=== PATIENT | female | born 1955 | race Caucasian/White ===

== ENCOUNTER 2020-07-10 04:08 | Outpatient (REF) | payer MEDICAID, SELFPAY | END 2020-07-10 04:09 | disposition home or self-care (01) | LOC: HO.LHD 04:08 | PROVIDERS: Visit Provider Nurse Practitioner Adult Health | DX: Z13.89 Encounter for screening for other disorder (principal) ==

== ENCOUNTER 2020-07-14 | Outpatient (REF) | payer MEDICARE, MEDICAID, SELFPAY ==
[2020-07-14 11:01] LABS: Hematocrit 36.3 % (37-47); Hemoglobin 11.3 g/dl (12.0-16.0); Mean Corpuscular HGB Conc 31.1 g/dl (31.0-35.0); Mean Corpuscular Hemoglobin 28.8 pg (27.0-33.0); Mean Corpuscular Volume 92.6 fL (80-98); Mean Platelet Volume 11.4 fL (9.4-12.3); Platelet Count 187 X10*3/uL (160-400); Red Blood Count 3.92 X10*6/uL (4.20-5.50); Red Cell Distribution Width 15.4 % (11.0-16.0); White Blood Count 5.5 X10*3/uL (4.8-10.8)
[2020-07-14 11:16] LABS: Estimated Average Glucose 77 mg/dL; Hemoglobin A1C 69.5368 umol/L; Hemoglobin A1c % 4.3 %
[2020-07-14 11:17] LABS: Prothrombin Time 77.5 SEC (10.8-13.0)
[2020-07-14 11:26] LABS: INTERNATIONAL NORM RATIO 6.4 (0.9-1.1)
[2020-07-14 11:44] LABS: Alanine Aminotransferase 26 U/L (0-31); Albumin Level 3.3 g/dL (3.5-5.0); Alkaline Phosphatase 127 U/L (39-117); Aspartate Amino Transferase 20 U/L (5-31); Bilirubin Total 1.2 mg/dL (0.0-1.0); Blood Urea Nitrogen 22 mg/dL (9-16); Calcium 7.8 mg/dL (8.4-10.2); Cholesterol 93 mg/dL; Estimated Glomerular Filt Rate > 60; Glucose Random 82 mg/dL (60-115); HDL Cholesterol 24 mg/dL; LDL Cholesterol Calculated 52 mg/dl; Phosphorus 2.7 mg/dL (2.7-4.5); Total Protein 6.1 g/dL (6.5-8.0); Triglycerides 89 mg/dL
[2020-07-14 11:45] LABS: Digoxin 0.5 ng/mL (0.8-2.0)
[2020-07-14 11:53] LABS: TSH reflex Free T4 1.62 mIU/mL (0.32-4.0)
[2020-07-14 12:04] LABS: Anion Gap 13 (12-20); Carbon Dioxide 25 mmol/L (22-29); Chloride 111 mmol/L (96-108); Potassium 3.9 mmol/l (3.3-5.1); Sodium 145 mmol/L (135-145)
[2020-07-14 12:08] LABS: Magnesium 0.7 mg/dL (1.6-2.6); Vitamin B12 417 pg/mL (200-900)
== END 2020-07-14 00:01 | disposition home or self-care (01) ==
LOC: HO.LHD
PROVIDERS: Visit Provider Nurse Practitioner Adult Health
DX: K90.89 Other intestinal malabsorption (principal); E43 Unspecified severe protein-calorie malnutrition; I48.91 Unspecified atrial fibrillation; F51.01 Primary insomnia; Z79.01 Long term (current) use of anticoagulants; R41.89 Other symptoms and signs involving cognitive functions and awareness
CPT/HCPCS: 36415; 80053; 80061; 80162; 82306; 82607; 83036; 83735; 84100; 84443; 85027; 85610

== ENCOUNTER 2020-07-18 06:49 | Outpatient (REF) | payer MEDICARE, MEDICAID, SELFPAY ==
[2020-07-18 11:24] LABS: INTERNATIONAL NORM RATIO 3.2 (0.9-1.1); Prothrombin Time 37.9 SEC (10.8-13.0)
== END 2020-07-18 06:50 | disposition home or self-care (01) ==
LOC: HO.LHD 06:49
PROVIDERS: Visit Provider Nurse Practitioner Adult Health
DX: I48.91 Unspecified atrial fibrillation (principal)
CPT/HCPCS: 36415; 85610

== ENCOUNTER 2020-07-24 04:03 | Outpatient (REF) | payer MEDICAID, SELFPAY ==
[2020-07-24 11:08] LABS: INTERNATIONAL NORM RATIO 1.6 (0.9-1.1); Prothrombin Time 19.4 SEC (10.8-13.0)
== END 2020-07-24 04:04 | disposition home or self-care (01) ==
LOC: HO.LHD 04:03
PROVIDERS: Visit Provider Nurse Practitioner Adult Health
DX: I48.91 Unspecified atrial fibrillation (principal)
CPT/HCPCS: 36415; 85610

== ENCOUNTER 2020-07-31 06:53 | Outpatient (REF) | payer MEDICAID, SELFPAY ==
[2020-07-31 10:58] LABS: INTERNATIONAL NORM RATIO 1.4 (0.9-1.1); Prothrombin Time 16.6 SEC (10.8-13.0)
== END 2020-07-31 06:54 | disposition home or self-care (01) ==
LOC: HO.LHD 06:53
PROVIDERS: Visit Provider Nurse Practitioner Adult Health
DX: I48.91 Unspecified atrial fibrillation (principal)
CPT/HCPCS: 36415; 85610

== ENCOUNTER 2020-08-08 07:13 | Outpatient (REF) | payer MEDICARE, MEDICAID, SELFPAY ==
[2020-08-08 10:54] LABS: Prothrombin Time 23.7 SEC (10.8-13.0)
== END 2020-08-08 07:14 | disposition home or self-care (01) ==
LOC: HO.LHD 07:13
PROVIDERS: Visit Provider Nurse Practitioner Adult Health
DX: I48.91 Unspecified atrial fibrillation (principal)
CPT/HCPCS: 36415; 85610

== ENCOUNTER 2020-08-14 | Outpatient (REF) | payer MEDICARE, MEDICAID, SELFPAY ==
[2020-08-14 10:52] LABS: INTERNATIONAL NORM RATIO 2.1 (0.9-1.1); Prothrombin Time 25.6 SEC (10.8-13.0)
== END 2020-08-14 00:01 | disposition home or self-care (01) ==
LOC: HO.LHD
PROVIDERS: Visit Provider Nurse Practitioner Adult Health
DX: I48.91 Unspecified atrial fibrillation (principal)
CPT/HCPCS: 36415; 85610

== ENCOUNTER 2020-08-28 | Outpatient (REF) | payer MEDICARE, MEDICAID, SELFPAY ==
[2020-08-28 10:50] LABS: INTERNATIONAL NORM RATIO 2.8 (0.9-1.1); Prothrombin Time 33.8 SEC (10.8-13.0)
== END 2020-08-28 00:01 | disposition home or self-care (01) ==
LOC: HO.LHD
PROVIDERS: Visit Provider Nurse Practitioner Adult Health
DX: I48.91 Unspecified atrial fibrillation (principal); Z79.01 Long term (current) use of anticoagulants
CPT/HCPCS: 36415; 85610

== ENCOUNTER 2020-09-18 | Outpatient (REF) | payer MEDICARE, MEDICAID, SELFPAY ==
[2020-09-18 10:29] LABS: INTERNATIONAL NORM RATIO 4.1 (0.9-1.1); Prothrombin Time 49.2 SEC (10.8-13.0)
== END 2020-09-18 00:01 ==
LOC: HO.LHD
PROVIDERS: Visit Provider Nurse Practitioner Adult Health
DX: I48.91 Unspecified atrial fibrillation (principal); Z79.01 Long term (current) use of anticoagulants
CPT/HCPCS: 36415; 85610

== ENCOUNTER 2020-09-29 08:04 | Outpatient (REF) | payer MEDICARE, MEDICAID, SELFPAY ==
[2020-09-29 11:50] LABS: INTERNATIONAL NORM RATIO 3.6 (0.9-1.1); Prothrombin Time 43.7 SEC (10.8-13.0)
== END 2020-09-29 08:05 | disposition home or self-care (01) ==
LOC: HO.LHD 08:04
PROVIDERS: Visit Provider Nurse Practitioner Adult Health
DX: I48.91 Unspecified atrial fibrillation (principal)
CPT/HCPCS: 36415; 85610

== ENCOUNTER 2020-10-09 05:07 | Outpatient (REF) | payer MEDICARE, MEDICAID, SELFPAY ==
[2020-10-09 11:32] LABS: INTERNATIONAL NORM RATIO 2.3 (0.9-1.1); Prothrombin Time 27.6 SEC (10.8-13.0)
== END 2020-10-09 05:08 | disposition home or self-care (01) ==
LOC: HO.LHD 05:07
PROVIDERS: Visit Provider Nurse Practitioner Adult Health
DX: I48.91 Unspecified atrial fibrillation (principal)
CPT/HCPCS: 36415; 85610

== ENCOUNTER 2020-10-23 | Outpatient (REF) | payer MEDICARE, MEDICAID, SELFPAY ==
[2020-10-23 10:01] LABS: INTERNATIONAL NORM RATIO 2.4 (0.9-1.1); Prothrombin Time 28.3 SEC (10.8-13.0)
== END 2020-10-23 00:01 | disposition home or self-care (01) ==
LOC: HO.LHD
PROVIDERS: Visit Provider Nurse Practitioner Adult Health
DX: I48.91 Unspecified atrial fibrillation (principal)
CPT/HCPCS: 36415; 85610

== ENCOUNTER 2020-11-13 05:14 | Outpatient (REF) | payer MEDICARE, MEDICAID, SELFPAY ==
[2020-11-13 11:18] LABS: INTERNATIONAL NORM RATIO 2.1 (0.9-1.1); Prothrombin Time 25.7 SEC (10.8-13.0)
== END 2020-11-13 05:15 | disposition home or self-care (01) ==
LOC: HO.LHD 05:14
PROVIDERS: Visit Provider Nurse Practitioner Adult Health
DX: I48.91 Unspecified atrial fibrillation (principal)
CPT/HCPCS: 36415; 85610

== ENCOUNTER 2020-12-04 00:16 | Outpatient (REF) | payer MEDICARE, MEDICAID, SELFPAY ==
[2020-12-04 11:01] LABS: INTERNATIONAL NORM RATIO 2.1 (0.9-1.1); Prothrombin Time 25.7 SEC (10.8-13.0)
== END 2020-12-04 00:17 | disposition home or self-care (01) ==
LOC: HO.LHD 00:16
PROVIDERS: Visit Provider Nurse Practitioner Adult Health
DX: I48.91 Unspecified atrial fibrillation (principal)
CPT/HCPCS: 36415; 85610

== ENCOUNTER 2021-01-01 01:10 | Outpatient (REF) | payer MEDICARE, MEDICAID, SELFPAY ==
[2021-01-01 11:14] LABS: INTERNATIONAL NORM RATIO 1.8 (0.9-1.1); Prothrombin Time 21.6 SEC (10.8-13.0)
== END 2021-01-01 01:11 | disposition home or self-care (01) ==
LOC: HO.LHD 01:10
PROVIDERS: Visit Provider Nurse Practitioner Adult Health
DX: I48.91 Unspecified atrial fibrillation (principal)
CPT/HCPCS: 36415; 85610

== ENCOUNTER 2021-01-29 00:59 | Outpatient (REF) | payer MEDICARE, MEDICAID, SELFPAY ==
[2021-01-29 11:23] LABS: INTERNATIONAL NORM RATIO 1.7 (0.9-1.1); Prothrombin Time 20.6 SEC (10.8-13.0)
== END 2021-01-29 01:00 | disposition home or self-care (01) ==
LOC: HO.LHD 00:59
PROVIDERS: Visit Provider Nurse Practitioner Adult Health
DX: I48.91 Unspecified atrial fibrillation (principal)
CPT/HCPCS: 36415; 85610

== ENCOUNTER 2021-02-12 00:57 | Outpatient (REF) | payer MEDICARE, MEDICAID, SELFPAY ==
[2021-02-12 12:31] LABS: INTERNATIONAL NORM RATIO 2.3 (0.9-1.1); Prothrombin Time 27.3 SEC (10.8-13.0)
== END 2021-02-12 00:58 | disposition home or self-care (01) ==
LOC: HO.LHD 00:57
PROVIDERS: Visit Provider Nurse Practitioner Adult Health
DX: I48.91 Unspecified atrial fibrillation (principal)
CPT/HCPCS: 36415; 85610

== ENCOUNTER 2021-03-05 06:33 | Outpatient (REF) | payer MEDICARE, MEDICAID, SELFPAY ==
[2021-03-05 11:09] LABS: INTERNATIONAL NORM RATIO 1.8 (0.9-1.1); Prothrombin Time 21.8 SEC (10.8-13.0)
== END 2021-03-05 06:34 | disposition home or self-care (01) ==
LOC: HO.LHD 06:33
PROVIDERS: Visit Provider Nurse Practitioner Adult Health
DX: I48.91 Unspecified atrial fibrillation (principal)
CPT/HCPCS: 36415; 85610

== ENCOUNTER 2021-03-25 01:04 | Outpatient (REF) | payer MEDICARE, MEDICAID, SELFPAY ==
[2021-03-25 10:41] LABS: INTERNATIONAL NORM RATIO 3.4 (0.9-1.1); Prothrombin Time 41.3 SEC (10.8-13.0)
== END 2021-03-25 01:05 | disposition home or self-care (01) ==
LOC: HO.LHD 01:04
PROVIDERS: Visit Provider Nurse Practitioner Adult Health
DX: I48.91 Unspecified atrial fibrillation (principal)
CPT/HCPCS: 36415; 85610

== ENCOUNTER 2021-04-02 00:59 | Outpatient (REF) | payer MEDICARE, MEDICAID, SELFPAY ==
[2021-04-02 12:03] LABS: Hematocrit 40.3 % (37-47); Hemoglobin 12.6 g/dl (12.0-16.0); Mean Corpuscular HGB Conc 31.3 g/dl (31.0-35.0); Mean Corpuscular Hemoglobin 29.8 pg (27.0-33.0); Mean Corpuscular Volume 95.3 fL (80-98); Mean Platelet Volume 11.5 fL (9.4-12.3); Platelet Count 137 X10*3/uL (160-400); Red Blood Count 4.23 X10*6/uL (4.20-5.50); Red Cell Distribution Width 14.2 % (11.0-16.0); White Blood Count 4.2 X10*3/uL (4.8-10.8)
[2021-04-02 12:04] LABS: INTERNATIONAL NORM RATIO 2.7 (0.9-1.1); Prothrombin Time 31.2 SEC (9.9-13.0)
[2021-04-02 13:26] LABS: Digoxin 0.4 ng/mL (0.8-2.0)
[2021-04-02 13:40] LABS: Anion Gap 11 (12-20); Blood Urea Nitrogen 29 mg/dL (9-16); Calcium 9.6 mg/dL (8.4-10.2); Carbon Dioxide 24 mmol/L (22-29); Chloride 114 mmol/L (96-108); Estimated Glomerular Filt Rate > 60; Glucose Random 82 mg/dL (60-115); Iron 47 mcg/dL (30-160); Magnesium 1.3 mg/dL (1.6-2.6); Percent Iron Saturation 15 % (15-50); Potassium 4.1 mmol/L (3.3-5.1); Sodium 145 mmol/L (135-145); Total Iron Binding Capacity 304 mcg/dL (228-428); Unsaturated Iron Binding 257 ug/dL
[2021-04-02 13:51] LABS: Vitamin D 25-OH Total 12.3 ng/mL (>30)
[2021-04-03 08:21] LABS: ~HepC Num1 0.19 S/CO (0.00-0.79); ~Hepatitis C Antibody Nonreactive (Nonreactive)
[2021-04-06 14:27] LABS: Zinc 53 mcg/dL (60-130)
== END 2021-04-02 01:00 | disposition home or self-care (01) ==
LOC: HO.LHD 00:59
PROVIDERS: Visit Provider Nurse Practitioner Adult Health
DX: I48.91 Unspecified atrial fibrillation (principal)
CPT/HCPCS: 36415; 80048; 80162; 82306; 83540; 83735; 84630; 85027; 85610; 86803

== ENCOUNTER 2021-04-09 | Outpatient (REF) | payer MEDICARE, MEDICAID, SELFPAY ==
[2021-04-09 11:06] LABS: Prothrombin Time 22.9 SEC (9.9-13.0)
== END 2021-04-09 00:01 | disposition home or self-care (01) ==
LOC: HO.LHD
PROVIDERS: Visit Provider Nurse Practitioner Adult Health
DX: I48.91 Unspecified atrial fibrillation (principal); Z79.01 Long term (current) use of anticoagulants
CPT/HCPCS: 36415; 85610

== ENCOUNTER 2021-04-23 07:11 | Outpatient (REF) | payer MEDICARE, MEDICAID, SELFPAY ==
[2021-04-23 10:45] LABS: INTERNATIONAL NORM RATIO 1.6 (0.9-1.1); Prothrombin Time 18.4 SEC (9.9-13.0)
== END 2021-04-23 07:12 | disposition home or self-care (01) ==
LOC: HO.LHD 07:11
PROVIDERS: Visit Provider Nurse Practitioner Adult Health
DX: I48.91 Unspecified atrial fibrillation (principal)
CPT/HCPCS: 36415; 85610

== ENCOUNTER 2021-04-30 07:12 | Outpatient (REF) | payer MEDICARE, MEDICAID, SELFPAY ==
[2021-04-30 11:32] LABS: INTERNATIONAL NORM RATIO 1.8 (0.9-1.1); Prothrombin Time 20.5 SEC (9.9-13.0)
== END 2021-04-30 07:13 | disposition home or self-care (01) ==
LOC: HO.LHD 07:12
PROVIDERS: Visit Provider Nurse Practitioner Adult Health
DX: I48.91 Unspecified atrial fibrillation (principal)
CPT/HCPCS: 36415; 85610

== ENCOUNTER 2021-05-14 06:44 | Outpatient (REF) | payer MEDICARE, MEDICAID, SELFPAY ==
[2021-05-14 10:45] LABS: INTERNATIONAL NORM RATIO 2.6 (0.9-1.1); Prothrombin Time 30.7 SEC (9.9-13.0)
== END 2021-05-14 06:45 | disposition home or self-care (01) ==
LOC: HO.LHD 06:44
PROVIDERS: Visit Provider Nurse Practitioner Adult Health
DX: I48.91 Unspecified atrial fibrillation (principal)
CPT/HCPCS: 36415; 85610

== ENCOUNTER 2021-06-04 05:00 | Outpatient (REF) | payer MEDICARE, MEDICAID, SELFPAY ==
[2021-06-04 10:34] LABS: INTERNATIONAL NORM RATIO 1.6 (0.9-1.1); Prothrombin Time 18.8 SEC (9.9-13.0)
[2021-06-04 11:03] LABS: Digoxin 0.4 ng/mL (0.8-2.0)
== END 2021-06-04 05:01 ==
LOC: HO.LHD 05:00
PROVIDERS: Visit Provider Nurse Practitioner Adult Health
DX: I48.91 Unspecified atrial fibrillation (principal); Z79.899 Other long term (current) drug therapy
CPT/HCPCS: 36415; 80162; 85610

== ENCOUNTER 2021-06-11 07:25 | Outpatient (REF) | payer MEDICARE, MEDICAID, SELFPAY ==
[2021-06-11 10:01] LABS: INTERNATIONAL NORM RATIO 2.2 (0.9-1.1)
== END 2021-06-11 07:26 | disposition home or self-care (01) ==
LOC: HO.LHD 07:25
PROVIDERS: Visit Provider Nurse Practitioner Adult Health
DX: I48.91 Unspecified atrial fibrillation (principal)
CPT/HCPCS: 36415; 85610

== ENCOUNTER 2021-06-25 10:49 | Outpatient (REF) | payer MEDICARE, MEDICAID, SELFPAY ==
[2021-06-25 11:25] LABS: INTERNATIONAL NORM RATIO 1.9 (0.9-1.1); Prothrombin Time 21.9 SEC (9.9-13.0)
== END 2021-06-25 10:50 | disposition home or self-care (01) ==
LOC: HO.LHD 10:49
PROVIDERS: Visit Provider Nurse Practitioner Adult Health
DX: I48.91 Unspecified atrial fibrillation (principal)
CPT/HCPCS: 36415; 85610

== ENCOUNTER 2021-07-09 12:37 | Outpatient (REF) | payer MEDICARE, MEDICAID, SELFPAY ==
[2021-07-09 10:28] LABS: Alanine Aminotransferase 30 U/L (0-31); Albumin Level 3.4 g/dL (3.5-5.0); Alkaline Phosphatase 102 U/L (39-117); Anion Gap 10 (12-20); Aspartate Amino Transferase 20 U/L (5-31); Bilirubin Total 1.5 mg/dL (0.0-1.0); Blood Urea Nitrogen 36 mg/dL (9-16); Calcium 9.6 mg/dL (8.4-10.2); Carbon Dioxide 29 mmol/L (22-29); Chloride 113 mmol/L (96-108); Estimated Glomerular Filt Rate > 60; Glucose Random 91 mg/dL (60-115); Potassium 4.7 mmol/L (3.3-5.1); Sodium 147 mmol/L (135-145); Total Protein 5.8 g/dL (6.5-8.0)
[2021-07-09 10:34] LABS: INTERNATIONAL NORM RATIO 2.4 (0.9-1.1); Prothrombin Time 27.9 SEC (9.9-13.0)
[2021-07-09 11:20] LABS: Digoxin 0.5 ng/mL (0.8-2.0)
== END 2021-07-09 12:38 | disposition home or self-care (01) ==
LOC: HO.LHD 12:37
PROVIDERS: Visit Provider Nurse Practitioner Adult Health
DX: I48.91 Unspecified atrial fibrillation (principal)
CPT/HCPCS: 36415; 80053; 80162; 85610

== ENCOUNTER 2021-07-24 07:39 | Outpatient (REF) | payer MEDICARE, MEDICAID, SELFPAY ==
[2021-07-23 11:17] LABS: INTERNATIONAL NORM RATIO 2.8 (0.9-1.1); Prothrombin Time 32.4 SEC (9.9-13.0)
== END 2021-07-24 07:40 | disposition home or self-care (01) ==
LOC: HO.LHD 07:39
PROVIDERS: Visit Provider Nurse Practitioner Adult Health
DX: I48.91 Unspecified atrial fibrillation (principal); Z79.01 Long term (current) use of anticoagulants
CPT/HCPCS: 36415; 85610

== ENCOUNTER 2021-08-13 13:21 | Outpatient (REF) | payer MEDICARE, MEDICAID, SELFPAY ==
[2021-08-13 11:04] LABS: INTERNATIONAL NORM RATIO 3.7 (0.9-1.1); Prothrombin Time 43.5 SEC (9.9-13.0)
== END 2021-08-13 13:22 | disposition home or self-care (01) ==
LOC: HO.LHD 13:21
PROVIDERS: Visit Provider Nurse Practitioner Adult Health
DX: I48.91 Unspecified atrial fibrillation (principal); Z79.01 Long term (current) use of anticoagulants
CPT/HCPCS: 36415; 85610

== ENCOUNTER 2021-08-27 12:04 | Outpatient (REF) | payer MEDICARE, MEDICAID, SELFPAY ==
[2021-08-27 10:44] LABS: Prothrombin Time 35.4 SEC (9.9-13.0)
== END 2021-08-27 12:05 | disposition home or self-care (01) ==
LOC: HO.LHD 12:04
PROVIDERS: Visit Provider Nurse Practitioner Adult Health
DX: I48.91 Unspecified atrial fibrillation (principal); Z79.01 Long term (current) use of anticoagulants
CPT/HCPCS: 36415; 85610

== ENCOUNTER 2021-09-17 08:28 | Outpatient (REF) | payer MEDICARE, MEDICAID, SELFPAY ==
[2021-09-17 12:03] LABS: INTERNATIONAL NORM RATIO 4.1 (0.9-1.1); Prothrombin Time 48.4 SEC (9.9-13.0)
== END 2021-09-17 08:29 | disposition home or self-care (01) ==
LOC: HO.LHD 08:28
PROVIDERS: Visit Provider Nurse Practitioner Adult Health
DX: I48.91 Unspecified atrial fibrillation (principal); Z79.01 Long term (current) use of anticoagulants
CPT/HCPCS: 36415; 85610

== ENCOUNTER 2021-09-24 12:48 | Outpatient (REF) | payer MEDICARE, MEDICAID, SELFPAY ==
[2021-09-24 11:47] LABS: INTERNATIONAL NORM RATIO 2.9 (0.9-1.1); Prothrombin Time 33.4 SEC (9.9-13.0)
== END 2021-09-24 12:49 | disposition home or self-care (01) ==
LOC: HO.LHD 12:48
PROVIDERS: Visit Provider Nurse Practitioner Adult Health
DX: I48.91 Unspecified atrial fibrillation (principal); Z79.01 Long term (current) use of anticoagulants
CPT/HCPCS: 36415; 85610

== ENCOUNTER 2021-10-08 11:14 | Outpatient (REF) | payer MEDICARE, MEDICAID, SELFPAY ==
[2021-10-08 11:56] LABS: INTERNATIONAL NORM RATIO 2.4 (0.9-1.1); Prothrombin Time 27.7 SEC (9.9-13.0)
[2021-10-08 12:33] LABS: Digoxin 0.9 ng/mL (0.8-2.0)
== END 2021-10-08 11:15 | disposition home or self-care (01) ==
LOC: HO.LHD 11:14
PROVIDERS: Visit Provider Nurse Practitioner Adult Health
DX: I48.91 Unspecified atrial fibrillation (principal); Z79.899 Other long term (current) drug therapy
CPT/HCPCS: 36415; 80162; 85610

== ENCOUNTER 2021-11-05 07:24 | Outpatient (REF) | payer MEDICARE, MEDICAID, SELFPAY ==
[2021-11-05 14:29] LABS: INTERNATIONAL NORM RATIO 1.8 (0.9-1.1)
== END 2021-11-05 07:25 | disposition home or self-care (01) ==
LOC: HO.LHD 07:24
PROVIDERS: Visit Provider Nurse Practitioner Adult Health
DX: I48.91 Unspecified atrial fibrillation (principal); Z79.01 Long term (current) use of anticoagulants
CPT/HCPCS: 36415; 85610

== ENCOUNTER 2021-11-19 10:35 | Outpatient (REF) | payer MEDICARE, MEDICAID, SELFPAY ==
[2021-11-19 10:25] LABS: MANUAL DIFF FLAG NO
[2021-11-19 10:32] LABS: Basophils Percent Auto 0.7 % (0-2); Eosinophils Absolute Auto 0.2 X10*3/uL (0.0-0.4); Eosinophils Percent Auto 4.2 % (0-4); Hematocrit 38.8 % (37.0-47.0); Imm Gran Abs Auto 0.03 X10*3/uL (0.00-0.03); Imm Gran Pct Auto 0.7 % (0.0-0.4); Lymphocytes Absolute Auto 0.9 X10*3/uL (1.2-4.9); Lymphocytes Percent Auto 19.1 % (20-40); Mean Corpuscular HGB Conc 30.9 g/dl (31.0-35.0); Mean Corpuscular Hemoglobin 30.8 pg (27.0-33.0); Mean Corpuscular Volume 99.5 fL (80.0-98.0); Mean Platelet Volume 11.6 fL (9.4-12.3); Monocytes Absolute Auto 0.4 X10*3/uL (0.1-1.2); Neutrophils Percent Auto 66.3 % (45-73); Platelet Count 130 X10*3/uL (160-400); Red Cell Distribution Width 14.9 % (11.0-16.0); White Blood Count 4.6 X10*3/uL (4.8-10.8)
[2021-11-19 10:37] LABS: INTERNATIONAL NORM RATIO 2.1 (0.9-1.1); Prothrombin Time 24.6 SEC (9.9-13.0)
[2021-11-19 10:54] LABS: Anion Gap 9 (12-20); Blood Urea Nitrogen 26 mg/dL (9-16); Calcium 9.6 mg/dL (8.4-10.2); Carbon Dioxide 27 mmol/L (22-29); Chloride 113 mmol/L (96-108); Cholesterol 127 mg/dL; Estimated Glomerular Filt Rate > 60; Glucose Random 93 mg/dL (60-115); HDL Cholesterol 25 mg/dL; LDL Cholesterol Calculated 78 mg/dl; Potassium 4.7 mmol/L (3.3-5.1); Sodium 144 mmol/L (135-145); Triglycerides 123 mg/dL
== END 2021-11-19 10:36 | disposition home or self-care (01) ==
LOC: HO.LHD 10:35
PROVIDERS: Visit Provider Nurse Practitioner Adult Health
DX: E43 Unspecified severe protein-calorie malnutrition (principal); I48.91 Unspecified atrial fibrillation; Z79.01 Long term (current) use of anticoagulants
CPT/HCPCS: 36415; 80048; 80061; 85025; 85610

== ENCOUNTER 2021-12-03 06:06 | Outpatient (REF) | payer MEDICARE, MEDICAID, SELFPAY ==
[2021-12-03 12:37] LABS: INTERNATIONAL NORM RATIO 2.5 (0.9-1.1); Prothrombin Time 29.4 SEC (9.9-13.0)
== END 2021-12-03 06:07 | disposition home or self-care (01) ==
LOC: HO.LHD 06:06
PROVIDERS: Visit Provider Nurse Practitioner Adult Health
DX: I48.91 Unspecified atrial fibrillation (principal); Z79.01 Long term (current) use of anticoagulants
CPT/HCPCS: 36415; 85610

== ENCOUNTER 2021-12-17 11:01 | Outpatient (REF) | payer MEDICARE, MEDICAID, SELFPAY ==
[2021-12-17 11:34] LABS: INTERNATIONAL NORM RATIO 2.7 (0.9-1.1); Prothrombin Time 30.9 SEC (9.9-13.0)
== END 2021-12-17 11:02 | disposition home or self-care (01) ==
LOC: HO.LHD 11:01
PROVIDERS: Visit Provider Nurse Practitioner Adult Health
DX: I48.91 Unspecified atrial fibrillation (principal); Z79.01 Long term (current) use of anticoagulants
CPT/HCPCS: 36415; 85610

== ENCOUNTER 2022-01-12 05:43 | Outpatient (REF) | payer MEDICARE, MEDICAID, SELFPAY ==
[2022-01-12 11:55] LABS: INTERNATIONAL NORM RATIO 1.9 (0.9-1.1); Prothrombin Time 21.7 SEC (9.9-13.0)
== END 2022-01-12 05:44 | disposition home or self-care (01) ==
LOC: HO.LHD 05:43
PROVIDERS: Visit Provider Nurse Practitioner Adult Health
DX: I48.91 Unspecified atrial fibrillation (principal); Z79.01 Long term (current) use of anticoagulants
CPT/HCPCS: 36415; 85610

== ENCOUNTER 2022-01-28 06:08 | Outpatient (REF) | payer OTHER, SELFPAY ==
[2022-01-28 11:00] LABS: INTERNATIONAL NORM RATIO 3.8 (0.9-1.1); Prothrombin Time 43.9 SEC (9.9-13.0)
[2022-01-28 11:34] LABS: Digoxin 0.7 ng/mL (0.8-2.0)
== END 2022-01-28 06:09 | disposition home or self-care (01) ==
LOC: HO.LHD 06:08
PROVIDERS: Visit Provider Nurse Practitioner Adult Health
DX: I48.91 Unspecified atrial fibrillation (principal); Z79.01 Long term (current) use of anticoagulants; Z79.899 Other long term (current) drug therapy
CPT/HCPCS: 36415; 80162; 85610

== ENCOUNTER 2022-02-04 13:19 | Outpatient (REF) | payer OTHER, SELFPAY ==
[2022-02-04 11:49] LABS: INTERNATIONAL NORM RATIO 3.6 (0.9-1.1); Prothrombin Time 42.5 SEC (9.9-13.0)
== END 2022-02-04 13:20 | disposition home or self-care (01) ==
LOC: HO.LHD 13:19
PROVIDERS: Visit Provider Nurse Practitioner Adult Health
DX: I48.91 Unspecified atrial fibrillation (principal); Z79.01 Long term (current) use of anticoagulants
CPT/HCPCS: 36415; 85610

== ENCOUNTER 2022-02-19 06:45 | Outpatient (REF) | payer OTHER, SELFPAY ==
[2022-02-18 12:56] LABS: INTERNATIONAL NORM RATIO 4.3 (0.9-1.1); Prothrombin Time 50.1 SEC (9.9-13.0)
== END 2022-02-19 06:46 | disposition home or self-care (01) ==
LOC: HO.LHD 06:45
PROVIDERS: Visit Provider Nurse Practitioner Adult Health
DX: I48.91 Unspecified atrial fibrillation (principal); Z79.01 Long term (current) use of anticoagulants
CPT/HCPCS: 36415; 85610

== ENCOUNTER 2022-02-25 07:05 | Outpatient (REF) | payer OTHER, SELFPAY ==
[2022-02-25 11:57] LABS: INTERNATIONAL NORM RATIO 2.1 (0.9-1.1); Prothrombin Time 24.6 SEC (9.9-13.0)
== END 2022-02-25 07:06 | disposition home or self-care (01) ==
LOC: HO.LHD 07:05
PROVIDERS: Visit Provider Nurse Practitioner Adult Health
DX: I48.91 Unspecified atrial fibrillation (principal); Z79.01 Long term (current) use of anticoagulants
CPT/HCPCS: 36415; 85610

== ENCOUNTER 2022-03-04 07:11 | Outpatient (REF) | payer OTHER, SELFPAY ==
[2022-03-04 13:38] LABS: Prothrombin Time 34.7 SEC (9.9-13.0)
== END 2022-03-04 07:12 | disposition home or self-care (01) ==
LOC: HO.LHD 07:11
PROVIDERS: Visit Provider Nurse Practitioner Adult Health
DX: I48.91 Unspecified atrial fibrillation (principal); Z79.01 Long term (current) use of anticoagulants
CPT/HCPCS: 36415; 85610

== ENCOUNTER 2022-03-11 06:35 | Outpatient (REF) | payer OTHER, SELFPAY ==
[2022-03-11 14:03] LABS: INTERNATIONAL NORM RATIO 3.4 (0.9-1.1); Prothrombin Time 39.2 SEC (9.9-13.0)
== END 2022-03-11 06:36 | disposition home or self-care (01) ==
LOC: HO.LHD 06:35
PROVIDERS: Visit Provider Nurse Practitioner Adult Health
DX: I48.91 Unspecified atrial fibrillation (principal); Z79.01 Long term (current) use of anticoagulants
CPT/HCPCS: 36415; 85610

== ENCOUNTER 2022-03-25 14:06 | Outpatient (REF) | payer OTHER, SELFPAY ==
[2022-03-25 12:45] LABS: INTERNATIONAL NORM RATIO 2.2 (0.9-1.1); Prothrombin Time 25.5 SEC (10.0-13.1)
== END 2022-03-25 14:07 | disposition home or self-care (01) ==
LOC: HO.LHD 14:06
PROVIDERS: Visit Provider Nurse Practitioner Adult Health
DX: I48.91 Unspecified atrial fibrillation (principal); Z79.01 Long term (current) use of anticoagulants
CPT/HCPCS: 36415; 85610

== ENCOUNTER 2022-04-16 05:49 | Outpatient (REF) | payer OTHER, SELFPAY ==
[2022-04-15 11:53] LABS: INTERNATIONAL NORM RATIO 2.6 (0.9-1.1); Prothrombin Time 30.9 SEC (10.0-13.1)
== END 2022-04-16 05:50 | disposition home or self-care (01) ==
LOC: HO.LHD 05:49
PROVIDERS: Visit Provider Nurse Practitioner Adult Health
DX: I48.91 Unspecified atrial fibrillation (principal); Z79.01 Long term (current) use of anticoagulants
CPT/HCPCS: 36415; 85610

== ENCOUNTER 2022-05-06 13:17 | Outpatient (REF) | payer OTHER, SELFPAY ==
[2022-05-06 11:51] LABS: INTERNATIONAL NORM RATIO 2.2 (0.9-1.1); Prothrombin Time 25.7 SEC (10.0-13.1)
== END 2022-05-06 13:18 | disposition home or self-care (01) ==
LOC: HO.LHD 13:17
PROVIDERS: Visit Provider Nurse Practitioner Adult Health
DX: I48.91 Unspecified atrial fibrillation (principal); Z79.01 Long term (current) use of anticoagulants
CPT/HCPCS: 36415; 85610

== ENCOUNTER 2022-05-27 12:30 | Outpatient (REF) | payer OTHER, SELFPAY ==
[2022-05-27 12:05] LABS: INTERNATIONAL NORM RATIO 2.8 (0.9-1.1); Prothrombin Time 33.2 SEC (10.0-13.1)
== END 2022-05-27 12:31 | disposition home or self-care (01) ==
LOC: HO.LHD 12:30
PROVIDERS: Visit Provider Nurse Practitioner Adult Health
DX: I48.91 Unspecified atrial fibrillation (principal); Z79.01 Long term (current) use of anticoagulants
CPT/HCPCS: 36415; 85610

== ENCOUNTER 2022-06-17 14:01 | Outpatient (REF) | payer OTHER, SELFPAY ==
[2022-06-17 13:50] LABS: INTERNATIONAL NORM RATIO 2.9 (0.9-1.1); Prothrombin Time 34.5 SEC (10.0-13.1)
== END 2022-06-17 14:02 | disposition home or self-care (01) ==
LOC: HO.LHD 14:01
PROVIDERS: Visit Provider Nurse Practitioner Adult Health
DX: I48.91 Unspecified atrial fibrillation (principal); Z79.01 Long term (current) use of anticoagulants
CPT/HCPCS: 36415; 85610

== ENCOUNTER 2022-07-08 07:54 | Outpatient (REF) | payer OTHER, SELFPAY ==
[2022-07-08 11:01] LABS: INTERNATIONAL NORM RATIO 1.7 (0.9-1.1); Prothrombin Time 19.9 SEC (10.0-13.1)
== END 2022-07-08 07:55 | disposition home or self-care (01) ==
LOC: HO.LHD 07:54
PROVIDERS: Visit Provider Nurse Practitioner Adult Health
DX: I48.91 Unspecified atrial fibrillation (principal); Z79.01 Long term (current) use of anticoagulants
CPT/HCPCS: 36415; 85610

== ENCOUNTER 2022-07-20 06:02 | Outpatient (REF) | payer OTHER, SELFPAY ==
[2022-07-15 11:47] LABS: INTERNATIONAL NORM RATIO 1.9 (0.9-1.1); Prothrombin Time 22.6 SEC (10.0-13.1)
== END 2022-07-20 06:03 | disposition home or self-care (01) ==
LOC: HO.LHD 06:02
PROVIDERS: Visit Provider Nurse Practitioner Adult Health
DX: I48.91 Unspecified atrial fibrillation (principal); Z79.01 Long term (current) use of anticoagulants
CPT/HCPCS: 36415; 85610

== ENCOUNTER 2022-07-29 06:38 | Outpatient (REF) | payer OTHER, SELFPAY ==
[2022-07-29 13:04] LABS: INTERNATIONAL NORM RATIO 2.5 (0.9-1.1); Prothrombin Time 30.2 SEC (10.0-13.1)
== END 2022-07-29 06:39 | disposition home or self-care (01) ==
LOC: HO.LHD 06:38
PROVIDERS: Visit Provider Internal Medicine
DX: I48.91 Unspecified atrial fibrillation (principal); Z79.01 Long term (current) use of anticoagulants
CPT/HCPCS: 36415; 85610

== ENCOUNTER 2022-08-12 13:55 | Outpatient (REF) | payer OTHER, SELFPAY ==
[2022-08-12 12:04] LABS: INTERNATIONAL NORM RATIO 2.3 (0.9-1.1)
== END 2022-08-12 13:56 | disposition home or self-care (01) ==
LOC: HO.LHD 13:55
PROVIDERS: Visit Provider Nurse Practitioner Adult Health
DX: I48.91 Unspecified atrial fibrillation (principal); Z79.01 Long term (current) use of anticoagulants
CPT/HCPCS: 36415; 85610

== ENCOUNTER 2022-08-30 05:58 | Outpatient (REF) | payer OTHER, SELFPAY | END 2022-08-30 05:59 | disposition home or self-care (01) | LOC: HO.LHD 05:58 | PROVIDERS: Visit Provider Nurse Practitioner Adult Health | DX: Z13.89 Encounter for screening for other disorder (principal) ==